=== PATIENT | male | born 1970 | race Caucasian/White ===

== ENCOUNTER 2017-09-25 18:10 | Emergency (ER) | payer MEDICAID ==
[~2017-09-25] VITALS: Ht 167.6 cm; Wt 98.2 kg
[~2017-09-25 18:10] MED LIST: GLUC1500 PO; INSU100V8 SQ; METF10002 PO
[2017-09-25 18:13] VITALS: BP 164/83
== END 2017-09-25 18:55 | disposition home or self-care (01) ==
LOC: ED 18:50
DX: Z48.01 Encounter for change or removal of surgical wound dressing (principal); K21.9 Gastro-esophageal reflux disease without esophagitis; E11.9 Type 2 diabetes mellitus without complications
CPT/HCPCS: 99283

== ENCOUNTER 2018-04-04 12:17 | Emergency (ER) | payer MEDICAID ==
[~2018-04-04] VITALS: Ht 162.6 cm; Wt 97.0 kg
[~2018-04-04 12:17] MED LIST changes: -GLUC1500 PO; +GLUC15006 PO; +OXYC5TAB2 PO; +QUINAPRIL; +SIMVASTATIN
[2018-04-04 13:59] VITALS: BP 132/81
== END 2018-04-04 14:31 | disposition home or self-care (01) ==
LOC: ED 14:25
DX: M25.521 Pain in right elbow (principal); G89.11 Acute pain due to trauma; I10 Essential (primary) hypertension; E11.9 Type 2 diabetes mellitus without complications; K21.9 Gastro-esophageal reflux disease without esophagitis
CPT/HCPCS: 29105; 99283

== ENCOUNTER 2020-05-20 09:03 | Emergency (ER) | payer SELFPAY ==
[~2020-05-20] VITALS: Ht 170.2 cm; Wt 101.0 kg
[2020-05-20] MEDS ORDERED: KETOROLAC 30 MG/1 ML ONE (09:45)
--- NOTE | 2020-05-20 09:57 | NUR ---
PT PRESENTS TO ED WITH C/O RT FLANK PAIN WITH NAUSEA WHICH AWOKE HIM FROM SLEEP THIS AM. PT ATTACHED TO BP AND SPO2 MONITORS. CALL LIGHT IN REACH. MEDICATED PER EMAR, URINE TAKEN TO LAB. PT AWAITING LAB RESULTS AND CT AT THIS TIME.
[2020-05-20 10:00] LABS: BASOPHILS # (AUTO) 0.05 x10^3/uL (0-0.1); BASOPHILS % (AUTO) 1 % (0-1); EOSINOPHILS % (AUTO) 5 % (1-7); LYMPHOCYTES # (AUTO) 1.28 x10^3/uL (1-3.4); LYMPHOCYTES % (AUTO) 22 % (22-44); MD NO; MEAN CORPUSCULAR HEMOGLOBIN 29.3 pg (27.5-34.5); MEAN CORPUSCULAR HGB CONC 32.2 g/dL (33.2-36.2); MEAN CORPUSCULAR VOLUME 90.8 fL (81-97); MEAN PLATELET VOLUME 7.9 fL (7.4-10.4); MONOCYTES # (AUTO) 0.49 x10^3/uL (0.2-0.8); MONOCYTES % (AUTO) 8 % (2-9); NEUTROPHILS # (AUTO) 3.74 x10^3/uL (1.8-6.8); NEUTROPHILS % (AUTO) 64 % (42-75); PLATELET COUNT 273 x10^3/uL (130-400); RED BLOOD COUNT 5.19 x10^6/uL (4.38-5.82); RED CELL DISTRIBUTION WIDTH 14.3 % (9.4-14.8)
[2020-05-20] MEDS ORDERED: KETOROLAC 60 MG/2 ML IM ONE (10:00)
[2020-05-20 10:04] LABS: MICROSCOPIC AUTO
[2020-05-20 10:10] LABS: ALBUMIN 3.7 g/dL (3.4-5.0); ANION GAP 6 mmol/L (5-15); CALCIUM 8.9 mg/dL (8.5-10.1); CHLORIDE 106 mmol/L (98-107); CREATININE 1.01 mg/dL (0.7-1.3)
--- NOTE | 2020-05-20 10:10 | NUR ---
pt taken to CT, nadn at transport.
--- NOTE | 2020-05-20 10:35 | NUR ---
PT BACK FROM CT, NADN.
--- NOTE | 2020-05-20 10:41 | NUR ---
ALL RESULTS BACK, CHART UP FOR RECHECK. AWAITING PROVIDER AND DISPO.
--- NOTE | 2020-05-20 10:50 | NUR ---
pt reports flank pain resolved, pt a&o, resps even and unlabored, awaiting provider and dispo at this time.
[2020-05-20 11:49] VITALS: BP 119/58
== END 2020-05-20 11:55 | disposition home or self-care (01) ==
LOC: ED 10:51
DX: K43.9 Ventral hernia without obstruction or gangrene (principal); G47.30 Sleep apnea, unspecified; R10.31 Right lower quadrant pain; I10 Essential (primary) hypertension; E11.9 Type 2 diabetes mellitus without complications
CPT/HCPCS: 36415; 74176; 80048; 81001; 82040; 85025; 96372; 99284; J1885